=== PATIENT | female | born 1985 | race Caucasian/White ===

== ENCOUNTER 2024-11-20 06:44 | Day surgery (SDC) | payer BC ==
[2024-11-11 13:24] LABS: Absolute Basophils 0.1 K/uL (0-0.5); Absolute Lymphocytes (CBC) 1.2 K/uL (0.7-4.9); Absolute Monocytes 0.5 K/uL (0.1-1.3); Absolute Neutrophil 6.6 K/uL (1.8-8.0); Basophils % 0.8 % (0-1.3); Eosinophils % 0.4 % (0-4.4); Hematocrit 40.9 % (36.0-45.0); Hemoglobin 14.2 g/dL (12.0-15.0); Lymphocytes % 14.2 % (15.3-44.8); MCH 29.6 pg (27.0-35.0); MCHC 34.6 g/dL (32.0-36.0); MCV 85.5 fL (80-100); MPV 8.3 fL (7.6-11.3); Monocytes % 6.1 % (3.3-12.3); Neutrophils % 78.5 % (41.7-73.7); Nucleated Red Blood Cells % 0.1 % (0-0); Platelets 296 thou/uL (152-406); RBC Red Blood Cell Count 4.79 M/uL (3.86-4.86); Red Cell Distribution Width 13.4 % (12.1-15.2)
[2024-11-11 13:26] LABS: PT Prothrombin Time 11.3 SECONDS (10-13.0); PTT, Activated Partial Thromb 28.6 SECONDS (27.2-37.4); Protime INR 0.99
[2024-11-11 13:37] LABS: Anion Gap 7.5 mEq/L (5.0-15.0); Potassium 3.5 mEq/L (3.5-5.1)
--- NOTE | 2024-11-11 15:03 | RAD REPORT ---
EXAMINATION: TWO VIEW CHEST XR CLINICAL INDICATION: Pre-op pending heart catheterization TECHNIQUE: 2 views of the chest was performed. COMPARISON: No prior exam. FINDINGS: The lungs are well inflated and clear. The heart is normal in size. No displaced fractures evident. IMPRESSION: No acute or significant abnormalities.
--- NOTE | 2024-11-12 11:55 | EKG ---
Test Date: 2024-11-11 Test Time: 12:53:33 Program Medical Director: SAMMIE MEASUREMENT RESULTS: Intervals: Rate: 79 HI: 130 QRSD: 104 QT: 384 QTc: 440 [place]: P: 58 HI: 130 QRS: 83 T: 66 INTERPRETIVE STATEMENTS: Normal sinus rhythm Incomplete right bundle branch block Borderline ECG No previous ECG available for comparison Electronically Signed On 11-12-24 11:53:04 CDT by Grant Maxwell
[2024-11-20] MEDS ORDERED: MIDAZOLAM HCL 2 MG/2 ML INJ ONE (06:52)
[2024-11-20] MEDS ORDERED: ATROPINE SULF 1 MG/10 ML SYR IV ONE (06:52)
[2024-11-20] MEDS ORDERED: HEPARIN 10,000 UNIT/10 ML VIAL IV ONE (06:52)
[2024-11-20] MEDS ORDERED: VERAPAMIL HCL 10 MG/4 ML VIAL IV ONE (06:52)
[2024-11-20] MEDS ORDERED: HEPA 1000U/500MLS 2,000 UNIT/1,000 ML BAG IV ONE (06:52)
[2024-11-20] MEDS ORDERED: FENTANYL CITR 100 MCG/2 ML ONE (06:53)
[2024-11-20] MEDS ORDERED: HEPARIN 5000 UNIT/ML 1 ML VIAL ONE (06:53)
[2024-11-20] MEDS ORDERED: ASPIRIN 325 MG TAB ONE (06:53)
[2024-11-20] MEDS ORDERED: CLOPIDOGREL 75 MG TABLET ONE (06:53)
[2024-11-20] MEDS ORDERED: TICAGRELOR 90 MG TABLET PO ONE (06:53)
[2024-11-20] MEDS ORDERED: LIDOCAINE 1% 20 ML MDV ONE (06:55)
[2024-11-20] MEDS ORDERED: NA CHLORIDE 0.9% 500 ML ONE (07:18)
[2024-11-20 07:20] LABS: Specific Gravity 1.019 (1.005-1.030)
--- NOTE | 2024-11-20 08:44 | OP ---
Date of Procedure: 11/20/2024 Surgeon: NILDA LERNER Procedures Performed: 1. Selective coronary angiogram. 2. Left heart catheterization. Indication: Chest pain with abnormal stress test. Access: Right radial artery, 6-[place]yr[place], closed with TR band. Complications: None. Bleeding: Less than 50 mL. Total Sedation Time: 45 minutes, used fentanyl. Description Of Procedure: After risks, benefits, and alternatives were explained, the patient agreed to procedure and signed informed consent. The patient was brought into cardiac catheterization [facility], prepped and draped in usual sterile fashion. Then I accessed right radial artery using [email or web address] micropuncture kit. Placed 6-[place] slender sheath and took 5-[place] 4 catheter into the a ortic root, engaged left main, took standard views and then the RCA, took standard views and across t he aortic valve over the wire, measured the LVEDP. Pullback did not record any gradient. Removed th e catheter and the sheath. Placed TR band with good hemostasis. Findings: 1. Left main: Large and normal. 2. LAD: Large and normal. Normal diagonal branches. 3. Left circumflex: Large and dominant, and normal. 4. RCA: Small, nondominant and normal. 5. LVEDP is around 10 to 15 mmHg. Conclusion: Normal coronary arteries. Plan: Medical management. /MODL Voice ID: [id number] Report ID: [id number]
[2024-11-20 09:46] VITALS: O2SAT 100
[2024-11-20 10:27] VITALS: BP 119/69
== END 2024-11-20 10:35 | disposition home or self-care (01) ==
LOC: CCL 06:44
PROVIDERS: ATTEND Internal Medicine
PROC: 4A023N7 Measurement of Cardiac Sampling and Pressure, Left Heart, Percutaneous Approach (ICD-10-PCS; principal; 2024-11-20)
PROC: B2111ZZ Fluoroscopy of Multiple Coronary Arteries using Low Osmolar Contrast (ICD-10-PCS; 2024-11-20)
DX: R94.39 Abnormal result of other cardiovascular function study (principal); I20.0 Unstable angina; I10 Essential (primary) hypertension; I47.20 Ventricular tachycardia, unspecified; I45.10 Unspecified right bundle-branch block; R06.00 Dyspnea, unspecified; E78.5 Hyperlipidemia, unspecified; Z82.49 Family history of ischemic heart disease and other diseases of the circulatory system
CPT/HCPCS: 93005; 85025; 80048; 36415; 81025; 85610; 85730; 71046; 93458; 76937; C1893; Q9966; J1644; J2003; J3010; J7040; 99152; J0461; J2250